=== PATIENT | male | born 1980 | race Caucasian/White ===

== ENCOUNTER 2016-11-30 17:40 | Inpatient (IN) | payer BC, OTHER ==
[~2016-11-30] VITALS: Ht 182.9 cm; Wt 145.6 kg
[~2016-11-30 17:40] MED LIST: AZIT250T6; IBUP-1008
[2016-11-30] MEDS ORDERED: KETOROLAC 60MG/2ML VIAL IM STA (20:01)
[2016-11-30 20:22] LABS: CLARITY URINE CLEAR (CLEAR); COLOR URINE YELLOW (YELLOW); GLUCOSE URINE 3+ (NEGATIVE); KETONES URINE NEGATIVE (NEGATIVE); LEUKOCYTE ESTERASE URINE TRACE (NEGATIVE); NITRITE URINE NEGATIVE (NEGATIVE); OCCULT BLOOD URINE NEGATIVE (NEGATIVE); PH URINE 6.5 (4.5-8.0); PROTEIN URINE NEGATIVE (NEGATIVE); SPECIFIC GRAVITY URINE 1.017 (1.005-1.030); UROBILINOGEN URINE 0.2 E.U./dL (0.2-1.0)
[2016-11-30 20:23] LABS: BASOPHILS % 0.5 % (0.0-2.0); EOSINOPHILS % 0.6 % (0.0-5.0); HEMATOCRIT. 42.2 % (42.0-52.0); HEMOGLOBIN. 14.7 g/dL (14.0-18.0); LYMPHOCYTES % 20.5 % (20.0-50.0); MEAN CORPUSCULAR VOLUME 80.8 fL (80.0-94.0); MEAN PLATELET VOLUME 9.4 fl (7.4-10.4); MONOCYTES % 9.4 % (2.0-8.0); PLATELET 187 x1000/uL (130-400); RED BLOOD CELL COUNT 5.23 mill/uL (4.7-6.1); RED CELL DISTRIBUTION WIDTH 12.5 % (11.6-14.6)
[2016-11-30 20:28] LABS: INR 1.1; PROTHROMBIN TIME 11.9 sec (9.4-11.6)
[2016-11-30 20:35] LABS: CARBON DIOXIDE 26 mEq/L (21-32); CHLORIDE 98 mEq/L (98-107)
[2016-11-30] MEDS ORDERED: SODIUM CHLORIDE 0.9% 1,000 ML IV ONE (22:45)
[2016-11-30] MEDS ORDERED: CEFTRIAXONE 1 G PREMIX 50 ML IV ONE (22:45)
[2016-12-01] MEDS ORDERED: PIPERACILLIN/TAZOBACTAM 3.375GM/50ML PREMIX IV ONE (00:45)
[2016-12-01] MEDS ORDERED: PIPERACILLIN/TAZ 3.375G PREMIX 50 ML IV NR (01:00)
[2016-12-01] MEDS ORDERED: MORPHINE SULFATE 4 MG/ML CPJ (NOT FOR IM USE) IV ONE (01:30)
[2016-12-01] MEDS ORDERED: MORPHINE SULFATE 2 MG/ML CPJ (NOT FOR IM USE) IV NR (01:45)
[2016-12-01] MEDS ORDERED: DIPHENHYDRAMINE 50MG/ML VIAL IV PRN (03:15)
[2016-12-01] MEDS ORDERED: ONDANSETRON HCL 4MG/2ML VIAL IV PRN ×3 (03:15→12:45)
[2016-12-01] MEDS ORDERED: ACETAMINOPHEN 650MG SUPP PR PRN (03:15)
[2016-12-01] MEDS ORDERED: MORPHINE SULFATE 2 MG/ML CPJ (NOT FOR IM USE) IV PRN ×3 (03:15→13:15)
[2016-12-01] MEDS ORDERED: METRONIDAZOLE 500 MG PREMIX 100 ML IV SCH (03:15)
[2016-12-01 03:52] VITALS: BP 142/71
[2016-12-01] MEDS ORDERED: SODIUM CHLORIDE 0.9% 1,000 ML IV SCH (04:00)
[2016-12-01 08:00] VITALS: BP 127/77
[2016-12-01] MEDS: FAMOTIDINE 20MG/2ML VIAL IV SCH ×2 (10:24→23:13)
[2016-12-01] MEDS ORDERED: SKIN ADHESIVE 0.7 GM EA TOP ONE (11:53)
[2016-12-01] MEDS ORDERED: BUPIVACAINE HCL 0.5% (5MG/ML) 50ML ONE (11:54)
[2016-12-01 12:00] VITALS: BP 137/81
[2016-12-01] MEDS ORDERED: LEVOFLOXACIN 500MG PREMIX 100 ML IV ONE (12:14)
[2016-12-01] MEDS ORDERED: ACETAMINOPHEN 325MG TABLET PO PRN (12:15)
[2016-12-01] MEDS ORDERED: HYDROCODONE/ACETAMINOPHEN 5/325MG TABLET PO PRN (12:15)
[2016-12-01] MEDS ORDERED: MIDAZOLAM HCL 2 MG/2 ML VIAL ONE (12:16)
[2016-12-01] MEDS ORDERED: FENTANYL CITRATE/PF 50MCG/ML 2ML VIAL ONE (12:16)
[2016-12-01] MEDS ORDERED: LIDOCAINE HCL 1% 20ML VIAL (Pyxis) INJ ONE (12:31)
[2016-12-01] MEDS ORDERED: DEXAMETHASONE 4MG/ML 1ML VIAL ONE (12:31)
[2016-12-01] MEDS ORDERED: PROPOFOL 200MG/20ML VIAL IV ONE (12:31)
[2016-12-01] MEDS ORDERED: NEOSTIGMINE METHYLSULFATE 1MG/ML 10 ML VIAL ONE (12:31)
[2016-12-01] MEDS ORDERED: GLYCOPYRROLATE 0.2 MG/ML 2ML VIAL ONE (12:31)
[2016-12-01] MEDS ORDERED: LABETALOL HCL 5MG/ML VIAL 20ML IV ONE (12:44)
[2016-12-01] MEDS ORDERED: HYDROMORPHONE HCL/PF 2MG/ML CPJ IV PRN (12:45)
[2016-12-01] MEDS ORDERED: MEPERIDINE HCL/PF 25MG/ML CPJ IV PRN (12:45)
[2016-12-01] MEDS ORDERED: LABETALOL HCL 20MG/4ML CARPUJECT IV PRN (12:45)
[2016-12-01] MEDS: SODIUM CHLORIDE 0.9% INJ 3ML FLUSH IVF SCH ×2 (14:00→23:13)
[2016-12-01 16:00] VITALS: BP 125/70
[2016-12-01] MEDS: DEXT 5%/0.45% NACL KCL 20MEQ/L 1,000 ML IV SCH (16:41)
[2016-12-01 20:00] VITALS: BP 105/48
[2016-12-01] MEDS ORDERED: CEFTRIAXONE 1 G PREMIX 50 ML IV SCH (23:00)
[2016-12-02] VITALS: BP 125/53
[2016-12-02 04:00] VITALS: BP 122/55
[2016-12-02] MEDS: DEXT 5%/0.45% NACL KCL 20MEQ/L 1,000 ML IV SCH ×2 (06:29→10:07)
[2016-12-02] MEDS: SODIUM CHLORIDE 0.9% INJ 3ML FLUSH IVF SCH (06:30)
[2016-12-02 08:00] VITALS: BP 135/79
[2016-12-02] MEDS: FAMOTIDINE 20MG/2ML VIAL IV SCH (09:02)
[2016-12-02 12:00] VITALS: BP 129/80
[2016-12-02 12:04] VITALS: BP 129/80
== END 2016-12-02 13:59 | disposition home or self-care (01) | DRG 343 ==
LOC: ER 20:31 → 6EST 12-01 00:38
PROVIDERS: ADMIT Internal Medicine; ATTEND Internal Medicine
PROC: 0DTJ4ZZ Resection of Appendix, Percutaneous Endoscopic Approach (ICD-10-PCS; principal; 2016-12-01 12:15)
DX: K35.80 Unspecified acute appendicitis (principal); K66.8 Other specified disorders of peritoneum; E11.9 Type 2 diabetes mellitus without complications; I10 Essential (primary) hypertension; Z72.0 Tobacco use; Z79.1 Long term (current) use of non-steroidal anti-inflammatories (NSAID); Z79.2 Long term (current) use of antibiotics; Z88.0 Allergy status to penicillin
CPT/HCPCS: 36415; 73706; 74176; 80053; 81001; 83036; 83690; 85025; 85610; 88304; 96365; 96367; 96372; 96375; 99291; J0696; J1100; J1170; J1885; J1956; J2250; J2270; J2543; J2704; J2710; J3010; J3490; J7030

== ENCOUNTER 2022-10-08 16:45 | Emergency (ER) | payer BC, OTHER ==
[~2022-10-08] VITALS: Ht 182.9 cm; Wt 147.0 kg
[2022-10-08 16:56] VITALS: O2SAT 98
[2022-10-08 16:59] VITALS: BP 161/84; PULSE 90; RESP 18; TEMP 99
[2022-10-08] MEDS ORDERED: LIDOCAINE HCL/PF 1% 10 MG/ML 5ML VIAL INFIL ONE (18:30)
[2022-10-08] MEDS ORDERED: BACITRACIN ZINC OINT UDPKT TOP ONE (18:30)
[2022-10-08] MEDS ORDERED: CLINDAMYCIN HCL 150MG CAPSULE PO STA (18:52)
[2022-10-08] MEDS ORDERED: IBUP-2028 MT (18:54)
[2022-10-08] MEDS ORDERED: CLIN-194 MT (18:54)
[2022-10-08] MEDS ORDERED: IBUPROFEN 400MG TABLET PO ONE (20:00)
== END 2022-10-08 19:49 | disposition home or self-care (01) ==
LOC: ER 16:50
DX: L02.511 Cutaneous abscess of right hand (principal); I48.91 Unspecified atrial fibrillation; E11.9 Type 2 diabetes mellitus without complications; I10 Essential (primary) hypertension
CPT/HCPCS: 10060; 99283; J3490; Z7610

== ENCOUNTER 2022-10-11 14:01 | Emergency (ER) | payer BC ==
[~2022-10-11] VITALS: Ht 182.9 cm; Wt 147.0 kg
[~2022-10-11 14:01] MED LIST changes: -AZIT250T6; +CLIN-194 MT; -IBUP-1008; +IBUP-2028 MT
[2022-10-11 14:16] VITALS: BP 159/94; PULSE 97; RESP 16; TEMP 98.6; O2SAT 99
== END 2022-10-11 16:14 | disposition home or self-care (01) ==
LOC: ER 14:01
DX: L02.511 Cutaneous abscess of right hand (principal); I48.91 Unspecified atrial fibrillation; E11.9 Type 2 diabetes mellitus without complications; I10 Essential (primary) hypertension; Z90.49 Acquired absence of other specified parts of digestive tract; Z48.00 Encounter for change or removal of nonsurgical wound dressing
CPT/HCPCS: 99281